=== PATIENT | male | born 1960 | race Caucasian/White ===

== ENCOUNTER 2019-10-03 15:28 | Emergency (ER) | payer MEDICAID, OTHER ==
[~2019-10-03] VITALS: Ht 182.3 cm; Wt 127.2 kg
[2019-10-03 16:17] LABS: BASOPHILS % (AUTO) 1 % (0-10); EOSINOPHILS % (AUTO) 3 % (0-10); HEMATOCRIT 35 % (40-54); HEMOGLOBIN 12.3 G/DL (13.3-17.7); LYMPHOCYTES % (AUTO) 16 % (12-44); MEAN CORPUSCULAR HEMOGLOBIN 34 PG (25-34); MEAN CORPUSCULAR HGB CONC 35 G/DL (32-36); MEAN CORPUSCULAR VOLUME 97 FL (80-99); MEAN PLATELET VOLUME 10.7 FL (7.4-10.4); MONOCYTES % (AUTO) 7 % (0-12); NEUTROPHILS % (AUTO) 73 % (42-75); PLATELET COUNT 80 10^3/uL (130-400); RED CELL DISTRIBUTION WIDTH 13.7 % (10.0-14.5); WHITE BLOOD COUNT 4.4 10^3/uL (4.3-11.0)
[2019-10-03 16:18] LABS: EOSINOPHILS # (AUTO) 0.1 10^3/uL (0.0-0.3); LYMPHOCYTES # (AUTO) 0.7 X 10^3 (1.0-4.0); MONOCYTES # (AUTO) 0.3 X 10^3 (0.0-1.0); NEUTROPHILS # (AUTO) 3.2 X 10^3 (1.8-7.8)
[2019-10-03 16:27] LABS: INR 1.4 (0.8-1.4)
[2019-10-03 16:50] LABS: BUN/CREATININE RATIO 27; CARBON DIOXIDE 21 MMOL/L (21-32); CHLORIDE 108 MMOL/L (98-107); CREATININE SERUM 0.71 MG/DL (0.60-1.30); GFR ESTIMATED > 60; POTASSIUM 4.1 MMOL/L (3.6-5.0); SODIUM 141 MMOL/L (135-145)
[2019-10-03 16:51] LABS: ALANINE AMINOTRANSFERASE 35 U/L (0-55); ALBUMIN 2.7 GM/DL (3.2-4.5); ALKALINE PHOSPHATASE 187 U/L (40-136); BILIRUBIN,TOTAL 3.3 MG/DL (0.1-1.0); CALCIUM 8.6 MG/DL (8.5-10.1); GLUCOSE 198 MG/DL (70-105); TOTAL PROTEIN 5.6 GM/DL (6.4-8.2)
--- NOTE | 2019-10-03 17:03 | Diagnostic Imaging Report ---
PROCEDURE: CT head without contrast. TECHNIQUE: Multiple contiguous axial images were obtained through the brain without the use of intravenous contrast. Auto Exposure Controls were utilized during the CT exam to meet ALARA standards for radiation dose reduction. INDICATION: Confusion and altered mental status. Unable to communicate. COMPARISON: None. FINDINGS: The ventricles are normal in size, shape, and position. There is no midline shift or mass effect. There is no hemorrhage or evidence of acute ischemia. There is no mass or extra-axial fluid collection. No obvious dense vessel sign is identified. The bony calvarium, paranasal sinuses, and mastoids are clear. IMPRESSION: Limited examination due to extensive motion artifact; otherwise, no acute intracranial abnormality is identified. Dictated by: Dictated on workstation # [id number]
--- NOTE | 2019-10-03 17:19 | ED General ---
General Chief Complaint: Altered Mental Status Stated Complaint: AMS Nursing Triage Note: Patient brought to the ED by [facility] ambulance service for altered mental status. Per family, patient has end-stage liver disease and is on the transplant list. Family states they are unable to care for patient and want him admitted to [facility] today. Nursing Sepsis Screen: No Definite Risk (BLAINE ARZATE MD) History of Present Illness Date Seen by Provider: Oct 03, 2019 Time Seen by Provider: 15:40 Initial Comments As above 58-year-old male apparently was transported from his home for altered mental status decreased level of consciousness Family told paramedics that he has end-stage liver disease is on a transplant list and they're unable to care for him they wanted him to be admitted to [facility] [place], apparently now pt initially nonverbal for nurse, barely responds with one word does follow commands but can't give any useful hx cristine eye 3 verbal 3 motor 6 9 pt sleepy but awakens easily RA O2 sat 99 pressure 145/64 pulse 55 respirations 16 (BLAINE ARZATE MD) Allergies and Home Medications Allergies Coded Allergies: No Known Drug Allergies (Unverified , 10/03/19) Patient Home Medication List Home Medication List Reviewed: Yes (BLAINE ARZATE MD) Review of Systems Review of Systems Constitutional: other (review of systems is unobtainable due to patient's mental status and no family available) EENTM: No blurred vision, No double vision, No throat pain Respiratory: No short of breath, No stridor Cardiovascular: No edema, No palpitations, No syncope Gastrointestinal: No diarrhea, No nausea Genitourinary: No hematuria, No pain Psychiatric/Neurological: See HPI; Denies Paresthesia, Denies Seizure, Denies Tingling Hematologic/Lymphatic: See HPI; Denies Anemia, Denies Blood Clots, Denies Other Immunological/Allergic: denies see HPI, denies transplant (BLAINE ARZATE MD) Past Zciykls-Dxnbrz-Otirnk Hx Patient Social History Recent Foreign Travel: No Contact w/Someone Who Travel: No Recent Infectious Disease Expo: No (BLAINE ARZATE MD) Physical Exam Vital Signs Vital Signs - First Documented 10/03/19 15:33 Temp 36.1 Pulse 55 Resp 16 B/P (MAP) 145/64 (91) Pulse Ox 99 O2 Delivery Room Air (KWAME AGUILAR DO) Vital Signs Capillary Refill : Less Than 3 Seconds (BLAINE ARZATE MD) Height, Weight, BMI Height: '" Weight: lbs. oz. kg; 38.00 BMI Method: General Appearance: Other (sedate as described in HPI) Eyes: Bilateral Eye PERRL, Bilateral Eye EOMI HEENT: Normal ENT Inspection, Moist Mucous Membranes, Other (cranial nerves intact symmetric grimace) Neck: Supple Respiratory: Lungs Clear Cardiovascular: Regular Rate, Rhythm Gastrointestinal: Normal Bowel Sounds, Non Tender, Soft, Other (patient has a markedly enlarged firm liver) Extremity: Other (4+ bilateral edema both legs) Neurologic/Psychiatric: Other (see descriptions pt moves arms symmetrically and with good strength no obvious focal deficit ) (BLAINE ARZATE MD) Progress/Results/Core Measures Suspected Sepsis Recent Fever Within 48 Hours: No Infection Criteria Present: None New/Unexplained Altered Menta: Yes Sepsis Screen: No Definite Risk SIRS Temperature: Pulse: 55 Respiratory Rate: 16 Laboratory Tests 10/03/19 16:00: White Blood Count 4.4 Blood Pressure 145 /64 Mean: 91 Laboratory Tests 10/03/19 16:00: Creatinine 0.71, INR Comment 1.4, Platelet Count 80L, Total Bilirubin 3.3H (BLAINE ARZATE MD) Results/Orders Lab Results Laboratory Tests Test 10/03/19 16:00 Range/Units White Blood Count 4.4 4.3-11.0 10^3/uL Red Blood Count 3.67 L 4.35-5.85 10^6/uL Hemoglobin 12.3 L 13.3-17.7 G/DL Hematocrit 35 L 40-54 % Mean Corpuscular Volume 97 80-99 FL Mean Corpuscular Hemoglobin 34 25-34 PG Mean Corpuscular Hemoglobin Concent 35 32-36 G/DL Red Cell Distribution Width 13.7 10.0-14.5 % Platelet Count 80 L 130-400 10^3/uL Mean Platelet Volume 10.7 H 7.4-10.4 FL Neutrophils (%) (Auto) 73 42-75 % Lymphocytes (%) (Auto) 16 12-44 % Monocytes (%) (Auto) 7 0-12 % Eosinophils (%) (Auto) 3 0-10 % Basophils (%) (Auto) 1 0-10 % Neutrophils # (Auto) 3.2 1.8-7.8 X 10^3 Lymphocytes # (Auto) 0.7 L 1.0-4.0 X 10^3 Monocytes # (Auto) 0.3 0.0-1.0 X 10^3 Eosinophils # (Auto) 0.1 0.0-0.3 10^3/uL Basophils # (Auto) 0.0 0.0-0.1 10^3/uL Prothrombin Time 17.0 H 12.2-14.7 SEC INR Comment 1.4 0.8-1.4 Sodium Level 141 135-145 MMOL/L Potassium Level 4.1 3.6-5.0 MMOL/L Chloride Level 108 H 98-107 MMOL/L Carbon Dioxide Level 21 21-32 MMOL/L Anion Gap 12 5-14 MMOL/L Blood Urea Nitrogen 19 H 7-18 MG/DL Creatinine 0.71 0.60-1.30 MG/DL Estimat Glomerular Filtration Rate > 60 BUN/Creatinine Ratio 27 Glucose Level 198 H 70-105 MG/DL Calcium Level 8.6 8.5-10.1 MG/DL Corrected Calcium 9.6 8.5-10.1 MG/DL Total Bilirubin 3.3 H 0.1-1.0 MG/DL Aspartate Amino Transf (AST/SGOT) 48 H 5-34 U/L Alanine Aminotransferase (ALT/SGPT) 35 0-55 U/L Alkaline Phosphatase 187 H 40-136 U/L Ammonia 80 H 11-32 UMOL/L Total Protein 5.6 L 6.4-8.2 GM/DL Albumin 2.7 L 3.2-4.5 GM/DL Serum Alcohol < 10 <10 MG/DL (KWAME AGUILAR DO) Vital Signs/I&O 10/03/19 15:33 Temp 36.1 Pulse 55 Resp 16 B/P (MAP) 145/64 (91) Pulse Ox 99 O2 Delivery Room Air (KWAME AGUILAR DO) Vital Signs/I&O Capillary Refill : Less Than 3 Seconds (BLAINE ARZATE MD) Blood Pressure Mean: 91 Progress Note : Progress Note CT head limited due to extensive motion artifact no acute abnormality identified Hemoglobins 12.3 white count 4400 INR 1.4 ammonia level has been sent to [facility] to be run Bilirubin is 3.3 glucose 198 liver enzymes showed just some mild elevation serum alcohol pending CXR enlargement with slight central vascular congestion ammonia - sent out pending etoh - <10 have been trying to get a hold of family unsuccessfully Care assumed by Dr. Aguilar 18:30 hrs (BLAINE ARZATE MD) Progress Note : Progress Note @2300 - Ammonia 80. We do not have lactulose available here. Pt's family prefers transfer to [facility]. Awaiting call back from hospitalist. @8975 - Dr. Campo accepts the transfer to [facility] in [place], [place]. (KWAME AGUILAR DO) ECG Comment EKG shows a sinus rhythm rate of 51 no acute changes (BLAINE ARZATE MD) Departure Impression Primary Impression: Hepatic encephalopathy Additional Impression: End-stage liver disease Disposition: XFER SHT-TRM HOSP Condition: Stable Transfer Transfer Reason: Patient preference Time Spoke to Accepting Phy: 23:[address] Shaun Campo accepts the transfer to [facility] Transfer Time: 23:55 Transfer Facility: [facility] Method of Transfer: EMS (KWAME AGUILAR DO) BLAINE ARZATE MD Oct 03, 2019 17:19 KWAME AGUILAR DO Oct 03, 2019 23:19
--- NOTE | 2019-10-03 17:28 | Diagnostic Imaging Report ---
INDICATION: Confusion and altered mental status. COMPARISON: None. FINDINGS: Single view of the chest demonstrates mild cardiac enlargement with slight central vascular congestion. There is no pneumothorax, effusion, or focal infiltrate. Osseous structures are age appropriate. IMPRESSION: Cardiac enlargement with slight central vascular congestion. Dictated by: Dictated on workstation # [id number]
--- OUTSIDE RECORDS SUMMARY | 2019-10-03 19:00 | XMS REPORT | Continuity of Care Document ---
Author Organization Unknown Address Unknown Phone Unavailable Allergies There is no data. Medications There is no data. Problems There is no data. Procedures There is no data. Results Test Result Range Complete blood count (CBC) with automate d white blood cell (WBC) differential - 10/03/19 16:00 Blood leukocytes automated count (number/volume) 4.4 10*3/uL 4.3-11.0 Blood erythrocytes automated count (number/volume) 3.67 10*6/uL 4.35-5.85 Venous blood hemoglobin measurement (mass/volume) 12.3 g/dL 13.3-17.7 Blood hematocrit (volume fraction) 35 % 40-54 Automated erythrocyte mean corpuscular volume 97 [ foz_us] 80-99 Automated erythrocyte mean corpuscular h emoglobin (mass per erythrocyte) 34 pg 25-34 Automated erythrocyte mean corpuscular h emoglobin concentration measurement (mass/volume) 35 g/dL 32-36 Automated erythrocyte distribution width ratio 13. 7 % 10.0- 14.5 Automated blood platelet count (count/volume) 80 1 0*3/uL 130-400 Automated blood platelet mean volume measurement 10.7 [foz_us] 7.4-10.4 Automated blood neutrophils/100 leukocytes 73 % 42-75 Automated blood lymphocytes/100 leukocytes 16 % 12-44 Blood monocytes/100 leukocytes 7 % 0-12 Automated blood eosinophils/100 leukocytes 3 % 0-10 Automated blood basophils/100 leukocytes 1 % 0-10 Blood neutrophils automated count (number/volume) 3.2 10*3 1.8-7.8 Blood lymphocytes automated count (number/volume) 0.7 10*3 1.0-4.0 Blood monocytes automated count (number/volume) 0. 3 10*3 0.0-1.0 Automated eosinophil count 0.1 10*3/uL 0 .0-0.3 Automated blood basophil count (count/volume) 0.0 10*3/uL 0.0-0.1 PT panel in platelet poor plasma by coag ulation assay - 10/03/19 16:00 Prothrombin time (PT) in platelet poor plasma by coagu lation assay 17.0 s 12.2-14.7 INR in platelet poor plasma or blood by coagulation as say 1.4 0.8-1.4 Comprehensive metabolic panel - 10/03/19 16:00 Serum or plasma sodium measurement (moles/volume) 141 mmol/L 135-145 Serum or plasma potassium measurement (moles/volume) 4.1 mmol/L 3.6-5.0 Serum or plasma chloride measurement (moles/volume) 108 mmol/L 98-107 Carbon dioxide 21 mmol/L 21-32 Serum or plasma anion gap determination (moles/volume) 12 mmol/L 5-14 Serum or plasma urea nitrogen measurement (mass/volume ) 19 mg/dL 7-18 Serum or plasma creatinine measurement (mass/volume) 0.71 mg/dL 0.60-1.30 Serum or plasma urea nitrogen/creatinine mass ratio 27 NRG Serum or plasma creatinine measurement w ith calculation of estimated glomerular filtration rate > NRG Serum or plasma glucose measurement (mass/volume) 198 mg/dL 70-105 Serum or plasma calcium measurement (mass/volume) 8.6 mg/dL 8.5-10.1 Serum or plasma total bilirubin measurement (mass/volu me) 3.3 mg/dL 0.1-1.0 Serum or plasma alkaline phosphatase cooper surement (enzymatic activity/volume) 187 U/L 40-136 Serum or plasma aspartate aminotransfera se measurement (enzymatic activity/volume) 48 U/L 5-34 Serum or plasma alanine aminotransferase measurement (enzymatic activity/volume) 35 U/L 0-55 Serum or plasma protein measurement (mass/volume) 5.6 g/dL 6.4-8.2 Serum or plasma albumin measurement (mass/volume) 2.7 g/dL 3.2-4.5 CALCIUM CORRECTED 9.6 mg/dL 8.5-10.1 Serum or plasma ethanol measurement (mas s/volume) - 10/03/19 16:00 Serum or plasma ethanol measurement (mass/volume) < mg/dL <10 Encounters ACCT No. Visit Date/Time Discharge Status Pt. Type Provider Facility Loc./Unit Complaint [id number] 10/03/2019 15:29:[address] Emergency ANASTACIA PUENTE DO [facility] ER FS AMS
[2019-10-03 22:39] LABS: AMMONIA 80 UMOL/L (11-32)
[2019-10-04 00:57] VITALS: BP 110/79
== END 2019-10-04 01:15 | disposition short-term general hospital (02) ==
LOC: ER FS 15:29
DX: K72.90 Hepatic failure, unspecified without coma (principal); N18.6 End stage renal disease; Z76.82 Awaiting organ transplant status
CPT/HCPCS: 36415; 70450; 71045; 80053; 82140; 85025; 85610; 93041; 99284; G0480; 80320; 93005

== ENCOUNTER 2020-03-12 18:10 | Emergency (ER) | payer MEDICAID ==
[~2020-03-12] VITALS: Ht 190.5 cm; Wt 97.7 kg
--- NOTE | 2020-03-12 18:16 | ED General ---
General Stated Complaint: OUT OF MEDS History of Present Illness Date Seen by Provider: Mar 12, 2020 Time Seen by Provider: 18:12 Initial Comments 59-year-old male presents because he is "out of his meds" patient reports he takes lactulose for elevated ammonia due to liver failure. Patient reports she's been incarcerated for 3 days and has not had his medication. Patient states that he states feels mildly confused. Patient doesn't state why feels confused. Patient answers all questions appropriately. Patient reports that he was here from [place], [place]. He is not sure the phone number of the individuals he was staying with when he got incarcerated. Patient reports he lost his cell phone and does not know anybody cell phone numbers. Patient is asking for cab or taxi vouchers and does not have any real medical complaints besides "confusion" Allergies and Home Medications Allergies Coded Allergies: No Known Drug Allergies (Unverified , 10/03/19) Patient Home Medication List Home Medication List Reviewed: Yes Review of Systems Review of Systems Constitutional: no symptoms reported EENTM: no symptoms reported Respiratory: no symptoms reported Cardiovascular: no symptoms reported Gastrointestinal: no symptoms reported Genitourinary: no symptoms reported Musculoskeletal: no symptoms reported Skin: no symptoms reported Psychiatric/Neurological: See HPI Hematologic/Lymphatic: See HPI Past [employer]-Rldmir-Qtellh Hx Past Med/Social Hx: Reviewed Nursing Past Med/Soc Hx Patient Social History 2nd Hand Smoke Exposure: No Recent Hopitalizations: Yes (multiple recent hospitalizations for liver failure per significant other) Seasonal Allergies Seasonal Allergies: No Past Medical History Surgeries: No Respiratory: No Cardiac: No Neurological: No Genitourinary: No Gastrointestinal: Yes (Hepatitis C positive) Liver Disease/Jaundice Endocrine: No HEENT: No Cancer: No Psychosocial: No Integumentary: No Physical Exam Vital Signs Vital Signs - First Documented 03/12/20 18:10 Temp 36.1 Pulse 57 Resp 20 B/P (MAP) 159/70 (99) Pulse Ox 99 O2 Delivery Room Air Capillary Refill : Height, Weight, BMI Height: '" Weight: lbs. oz. 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, Other (no clonus or asterix noted) Progress/Results/Core Measures Suspected Sepsis SIRS Temperature: Pulse: Respiratory Rate: Blood Pressure / Mean: Results/Orders My Orders Orders - MANDO CULLEN DO Sodium Polystyrene Sulfonate (Kayexalate (03/12/20 19:00) Sodium Polystyrene Sulfonate (Kayexalate (03/12/20 18:47) Lactulose Oral Solution (Enulose Oral So (03/12/20 21:30) Medications Given in ED Current Medications Medications Dose Ordered Sig/Cyndy Route Start Time Stop Time Status Last Admin Dose Admin Sodium Polystyrene Sulfonate 15 gm ONCE ONCE PO 03/12/20 19:00 03/12/20 19:01 DC 03/12/20 18:54 15 GM Vital Signs/I&O 03/12/20 03/12/20 18:10 21:14 Temp 36.1 36.4 Pulse 57 59 Resp 20 20 B/P (MAP) 159/70 (99) 161/69 (99) Pulse Ox 99 99 O2 Delivery Room Air Room Air Capillary Refill : Progress Note : Progress Note Patient answers all questions appropriately. Pts hepatic encephalopathy would be in stage I or 2 with no indications for admission. Patient was given a dose of Kayexalate here in the ER as he requested. Patient was offered labs or further evaluation but declined. Patient was offered a prescription for lac tulose and declined stating he did not have any money. I believe patient was here more to try to attempt to get social service or cab Voucher to help with a ride home back to [facility]. multiple attempts where made by nursing staff to help find pt a ride or a individual to call. pt provided little information for friends or family since no phone numbers where given. pt was discharged after approx 3 hrs of attempts in stable conditions Departure Impression Primary Impression: Chronic hepatic failure Qualified Codes: K72.10 - Chronic hepatic failure without coma Disposition: HOME, SELF-CARE Condition: Stable Departure-Patient Inst. Referrals: DONNA ARGUETA MD (PCP/Family) Primary Care Physician Patient Instructions: Cirrhosis (DC), Liver Failure Diet Add. Discharge Instructions: Follow-up with your primary care provider as needed MANDO CULLEN DO Mar 12, 2020 18:16
--- NOTE | 2020-03-12 18:40 | NUR ---
Pt is asked whom may ER call for him a ride and he declares having no phone contacts on him. A Helena Linton is on contact list and patient states the cell is no longer. "No one has a phone." "I have a dgt in [place] but unaware of a way to reach her."
--- NOTE | 2020-03-12 18:41 | NUR ---
Message left for Helena Linton on cell phone noted on file to request a return call in search of transportation for this patient.
[2020-03-12] MEDS ORDERED: SOD POLYSTERENE 15 GM/60 ML (KAYEXALATE) UNIT DOSE ONE (18:47)
[2020-03-12] MEDS ORDERED: SOD POLYSTERENE 15 GM/60 ML (KAYEXALATE) UNIT DOSE PO ONE (19:00)
--- NOTE | 2020-03-12 19:39 | NUR ---
Call to 's Dept for jurisdiction of [place] to ask assistance for finding transportation for him.
[2020-03-12 21:14] VITALS: BP 161/69
--- NOTE | 2020-03-12 21:21 | NUR ---
Went to discharge patient and he had left.
[2020-03-12] MEDS ORDERED: LACTULOSE SYRUP 10GM/15ML (ENULOSE) 30ML UDC PO ONE (21:30)
== END 2020-03-12 21:17 | disposition home or self-care (01) ==
LOC: EDUNIT# 18:10 → ER FS 18:11
DX: K72.10 Chronic hepatic failure without coma (principal)
CPT/HCPCS: 99283